=== PATIENT | female | born 1955 | race Caucasian/White ===

== ENCOUNTER → 2018-02-02 | Outpatient (CLI) | payer OTHER ==
[~2018-02-02] MED LIST: ACET-1966 PO; ASPI81TA94 PO; ATOR40TA24 PO; CALC500T42 PO; CALC600T63 PO; CELE-1 PO; CHOL10005 PO; DESO1TAB33 PO; DOC100 PO; ESOM20CA31 PO; FERR240T23 PO; FERROUS PO; FEXO-67 PO; FISH OIL1 CAP PO; FISH1CAP15 PO; FLU10 PO; FLUC150T40 PO; FLUO40CA70 PO; FLUT16SP19 NS; FLUT16SP20 NS; FURO-47 PO; GLUC-100 PO; GLUC1TAB13 PO; HYDR-4309 PO; LACT1CAP9 PO; LOR10 PO; MAGN250T25 PO; MAGN300C3 PO; METF-410 PO; METO25TA23 PO; MULT-820 PO; MULT1TAB64 PO; OLAN5TAB27 PO; OMEG-70 PO; OSC600 PO; OXYC-865 PO; PAN40 PO; PARO-243 PO; PER PO; PRAM0.2524 PO; ROS10 PO; TRA50 PO; ZYRTEC PO; [UNRECOGNIZED DRUG - CODE] PO; [UNRECOGNIZED DRUG - CODE] PV
--- NOTE | 2018-02-03 10:29 | RADIOLOGY IMAGING REPORT ---
FACILITY: [facility] - [place] PATIENT NAME: ADRIA ARMSTRONG : [id number] MR: [id number] V: [id number] EXAM DATE: ORDERING PHYSICIAN: STUART XIAO TECHNOLOGIST: Tere Fink PROCEDURE:US LEFT BREAST COMPARISON:Prior Left breast Ultrasound 07/12/17 INDICATIONS:6 mo f/u FINDINGS: In the 9 o'clock position of the Left breast approximately 3cm from the nipple are 2 well circumscribed hypoechoic nodules 1 measuring 4 x 4 x 2.4mm and 1 measuring 2.5 x 2 x 2.9mm a minimally increase in size. In the 10 o'clock position of the Left breast there is a 4.8 x 5.1 x 3mm well circumscribed hypoechoic nodule 5cm from the nipple. Also in the 10 o'clock position of the Left breast 7cm from the nipple is a 3.1 x 3.8 x 2.1mm well circumscribed hypoechoic nodule relatively unchanged. DIAGNOSTIC CATEGORY 3--PROBABLY BENIGN FINDING. RECOMMENDATIONS: SIX MONTH FOLLOW-UP ULTRASOUND: LEFT BREAST. IMPRESSION: BIRADS 3: Probably benign finding Well circumscribed hypoechoic nodules in the 9 & 10 o'clock position Left breast are not significantly changed when compared to the prior study. 6 month follow-up Left breast Ultrasound recommended to document stability over a 2 year period. Of note the patient will be due for an annual mammogram at that time. Dictated by: Melvi Bender M.D. on 02/02/2018 at 16:29 Transcribed by: NED on 02/03/2018 at 10:26 Approved by: Melvi Bender M.D. on 02/03/2018 at 10:28 [facility]
== END ==
LOC: US 01:08
PROVIDERS: ATTEND Nurse Practitioner Family
DX: N63.22 Unspecified lump in the left breast, upper inner quadrant (principal)

== ENCOUNTER → 2018-02-03 | Outpatient (CLI) | payer OTHER ==
--- NOTE | 2018-02-03 13:24 | RADIOLOGY IMAGING REPORT ---
FACILITY: [facility] - [place] PATIENT NAME: Jenny Wilson : 1955 MR: [id number] V: [id number] EXAM DATE: ORDERING PHYSICIAN: STUART XIAO TECHNOLOGIST: Location: [facility] - [place] Patient: Jenny Wilson : 1955 Visit/Account:[id number] Date of Sevice: 02/03/2018 Exam type: HAND COMPLETE RIGHT History: Right second digit bump on DIP Comparison: None. Findings: There are severe degenerative changes involving the DIP joint of the right second finger. There are severe joint space narrowing and prominent marginal osteophytes. Similar changes however to lesser e xtent are identified at the remaining DIP joints. Moderate degenerative changes also noted involving the first carpometacarpal articulation IMPRESSION: 1. 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
== END ==
LOC: RAD 11:58
PROVIDERS: ATTEND Nurse Practitioner Family
DX: M19.041 Primary osteoarthritis, right hand (principal)

== ENCOUNTER → 2018-07-13 | Outpatient (CLI) | payer OTHER ==
[~2018-07-13] MED LIST changes: -METF-410 PO; +METF-450 PO
--- NOTE | 2018-07-14 10:44 | RADIOLOGY IMAGING REPORT ---
FACILITY: [facility] - [place] PATIENT NAME: ADRIA ARMSTRONG : [id number] MR: [id number] V: [id number] EXAM DATE: [id number] ORDERING PHYSICIAN: JAKE HERRERA TECHNOLOGIST: Kell Acosta RT(R)(CT) PROCEDURE:US LEFT BREAST COMPARISON:Prior Left breast Ultrasound 02/02/18. INDICATIONS:6 MO F/U FINDINGS: In the 9 o'clock position of the Left breast 3cm from the nipple there is a well circumscribed hypoechoic nodule measuring 3.7mm in maximum dimension. Also in the 9 o'clock position of the Left breast 3cm from the nipple is a well circumscribed hypoechoic nodule measuring 2.5mm in maximum dimension. These have remained relatively stable. In the 10 o'clock position of the Left breast 7cm from the nipple is a well circumscribed hypoechoic nodule measuring 3.4mm in maximum dimension and in the 10 o'clock position of the Left breast 5cm from the nipple is a well circumscribed hypoechoic nodule measuring 5.2mm in diameter. All the nodules have remained stable. DIAGNOSTIC CATEGORY 3--PROBABLY BENIGN FINDING. RECOMMENDATIONS: SIX MONTH FOLLOW-UP ULTRASOUND: LEFT BREAST. IMPRESSION: BIRADS 3: Probably benign finding. A 6 month follow-up Left breast Ultrasound is recommended to document stability of the hypoechoic nodules in the Left breast over a 2 year period. Dictated by: Melvi Bender M.D. on 07/13/2018 at 17:09 Transcribed by: NED on 07/14/2018 at 8:10 Approved by: Melvi Bender M.D. on 07/14/2018 at 10:43 [facility]
--- NOTE | 2018-07-14 10:44 | RADIOLOGY IMAGING REPORT ---
FACILITY: [facility] - [place] PATIENT NAME: ADRIA ARMSTRONG : [id number] MR: [id number] V: [id number] EXAM DATE: [id number] ORDERING PHYSICIAN: JAKE HERRERA TECHNOLOGIST: Corinna Alcala PROCEDURE:BILATERAL DIGITAL SCREENING MAMMOGRAM WITH CAD ASSISTED INTERPRETATION & 3D TOMOSYNTHESIS COMPARISON:Prior mammograms 07/12/17, 12/22/13, 01/29/12. INDICATIONS:SCREENING FINDINGS: A small amount of fibroglandular tissue is seen throughout the breasts. The parenchymal pattern has remained stable allowing for difference in mammographic technique & patient positioning. There is no evidence of malignant appearing mass, malignant appearing calcifications or other secondary sign of malignancy in either breast. DIAGNOSTIC CATEGORY 3--PROBABLY BENIGN FINDING. RECOMMENDATIONS: SIX MONTH FOLLOW-UP ULTRASOUND: LEFT BREAST. IMPRESSION: BIRADS 3: Probably benign finding. Mammograms remain radio graphically stable. A 6 month follow-up Left breast Ultrasound is recommended as described in Today's Left breast Ultrasound report. Dictated by: Melvi Bender M.D. on 07/13/2018 at 17:05 Transcribed by: NED on 07/14/2018 at 8:02 Approved by: Melvi Bender M.D. on 07/14/2018 at 10:43 [facility]
== END ==
LOC: MAMO 06:48
PROVIDERS: ATTEND Nurse Practitioner Family
DX: Z12.31 Encounter for screening mammogram for malignant neoplasm of breast (principal); N63.22 Unspecified lump in the left breast, upper inner quadrant
CPT/HCPCS: 77063; 77067

== ENCOUNTER → 2018-11-14 | Outpatient (CLI) | payer OTHER ==
[~2018-11-14] MED LIST changes: -HYDR-4309 PO; +HYDR-653 PO
--- NOTE | 2018-11-14 17:31 | EKG ---
FACILITY: [facility] - [place] PATIENT NAME: ADRIA ARMSTRONG : [id number] MR: [id number] V: [id number] EXAM DATE: ORDERING PHYSICIAN: JAKE HERRERA TECHNOLOGIST: BIB Willis Reason : SOB \ PALPITATIONS Blood Pressure : / mmHG Vent. Rate : 067 BPM Atrial Rate : 067 BPM P-R Int : 176 ms QRS Dur : 084 ms QT Int : 420 ms P-R-T Axes : 057 090 067 degrees QTc Int : 443 ms Normal sinus rhythm Rightward axis Borderline ECG No previous ECGs available Confirmed by HAI DORSEY ([id number]) on 11/14/2018 10:10:56 PM Referred By: SHARON Confirmed By:HAI DORSEY
--- NOTE | 2018-11-14 23:54 | RADIOLOGY IMAGING REPORT ---
FACILITY: [facility] - [place] PATIENT NAME: Jenny Wilson : 1955 MR: [id number] V: [id number] EXAM DATE: ORDERING PHYSICIAN: JAKE HERRERA TECHNOLOGIST: Location: [facility] - [place] Patient: Jenny Wilson : 1955 Visit/Account:[id number] Date of Sevice: 11/14/2018 TWO VIEW CHEST 11/14/2018 5:03 PM. INDICATION: Shortness of breath, palpitations, chest pain, dizziness. COMPARISON: 06/17/2009. FINDINGS: Lungs remain mildly hyperexpanded. The lungs are clear. No pneumothorax or pleural effusi on. Pulmonary vasculature is unremarkable. Heart size is normal. IMPRESSION: Mild hyperexpansion similar to 2009. No apparent acute abnormality. Report Dictated By: Kevin Antunez MD at 11/14/2018 11:48 PM Report E-Signed By: Kevin Antunez MD at 11/14/2018 11:50 PM WSN:[id number]
== END ==
LOC: LAB 16:46
PROVIDERS: ATTEND Nurse Practitioner Family
DX: R06.00 Dyspnea, unspecified (principal); R00.2 Palpitations; R42 Dizziness and giddiness
CPT/HCPCS: 36415; 71046; 82040; 82247; 82310; 82374; 82435; 82565; 82947; 84075; 84132; 84155; 84295; 84450; 84460; 84520; 85027; 93005

== ENCOUNTER → 2018-11-25 | Outpatient (CLI) | payer OTHER ==
--- NOTE | 2018-11-25 10:12 | RADIOLOGY IMAGING REPORT ---
FACILITY: [facility] - [place], [place] PATIENT NAME: Jenny Wilson : 1955 MR: [id number] V: [id number] EXAM DATE: ORDERING PHYSICIAN: STUART XIAO TECHNOLOGIST: Location: [facility] - [place] Patient: Jenny Wilson : 1955 Visit/Account:[id number] Date of Sevice: 11/25/2018 GALLBLADDER HISTORY: Right upper quadrant pain, nausea on and off COMPARISON: CT abdomen pelvis January 19, 2017 FINDINGS: Gallbladder: Unremarkable; no stones or sludge. Liver: There is a slightly coarse echotexture to the liver although discrete mass is not seen. Common duct: Normal, 2.3 mm diameter. Pancreas: Partially obscured by bowel, visualized aspects unremarkable. Right kidney: Appears unremarkable measuring 12.6 cm in length Upper abdominal aorta and IVC: Patent. Ascites: None visualized. IMPRESSION: There is a slightly coarse echotexture to the liver although discrete mass is not seen. This may be related to fatty infiltration other infiltrative process Report Dictated By: Melvi Bender MD at 11/25/2018 10:05 AM Report E-Signed By: Melvi Bender MD at 11/25/2018 10:08 AM WSN:[email or web address]
== END ==
LOC: US 07:01
PROVIDERS: ATTEND Nurse Practitioner Family
DX: R10.11 Right upper quadrant pain (principal); R10.31 Right lower quadrant pain
CPT/HCPCS: 76705

== ENCOUNTER 2018-12-01 17:07 | Emergency (ER) | payer OTHER ==
[2018-12-01] MEDS ORDERED: NS(*) 0.9% 1000 ML BAG 1,000 ML IV ONE (17:42)
--- NOTE | 2018-12-01 17:44 | ER Report ---
History and Physical Time Seen By MD: 17:23 HPI/ROS CHIEF COMPLAINT: Shortness of breath, difficulty swallowing HISTORY OF PRESENT ILLNESS: 63-year-old female patient presents to emergency room with complaint of shortness of breath and difficulty swallowing. Patient states that she has had this going on for the past 2 months. She states she is seeing her primary care provider for this, she's had an EKG, chest x-ray, blood work done which were all unremarkable. Patient states that she often feels like she is trying to breathe through a straw. She denies having any fevers, chills, nausea, vomiting or diarrhea. Patient states that she does have difficulty swallowing at times. She states sometimes are better than others but states that this is been significantly worse over the last 2 days. Patient has been started on a PPI as well as Carafate for possible reflux and esophagitis. REVIEW OF SYSTEMS: Respiratory: As noted above. Cardiovascular: No chest pain, no palpitations. Gastrointestinal: No vomiting, no abdominal pain. Musculoskeletal: No back pain. Allergies: Coded Allergies: guaifenesin (Verified Allergy, Mild, 12/01/18) phenylpropanolamine (Verified Allergy, Mild, 12/01/18) Home Meds Active Scripts Prednisone (PREDNISONE) 20 Mg Tablet, 40 MG PO DAILY, #8 TAB Prov:EVANGELINA WHITFIELD 12/01/18 Hydrocodone Bit/Acetaminophen (NORCO 5-325 TABLET) 1 Each Tablet, 1 EACH PO Q4H PRN for PAIN, #30 TAB Prov:ROBYN BALLARD MD 08/10/17 Reported Medications Fexofenadine Hcl (DAMIAN ALLERGY) 180 Mg Tablet, 180 MG PO QDAY 08/06/17 Cholecalciferol (Vitamin D3) (VITAMIN D3) 1,000 Unit Tablet, 3000 UNIT PO DAILY, TAB 08/06/17 Paroxetine Hcl (PAXIL) 20 Mg Tablet, 40 MG PO QDAY, TAB 08/06/17 Furosemide (FUROSEMIDE) 40 Mg Tablet, 1 TAB PO DAILY, TAB 08/06/17 [Chlorcon] No Conflict Check, 10 MEQ PO DAILY 08/06/17 Olanzapine (OLANZAPINE) 5 Mg Tablet, 5 MG PO QDAY 08/06/17 Acetaminophen (TYLENOL) 325 Mg Tablet, 1000 MG PO PRN PRN for PAIN, TAB 08/06/17 Multivitamin (MULTI VITAMIN DAILY) 1 Each Tablet, 1 EACH PO DAILY 08/06/17 Calcium Carbonate (CALCIUM) 600 Mg Tablet, 1 TAB PO DAILY 08/06/17 Fish Oil/Dha/Epa (FISH OIL 1,200 MG FISH OIL) 1 Each Capsule, 2 EACH PO DAILY, CAPSULE 08/06/17 Rosuvastatin Calcium (CRESTOR) 10 Mg Tab, 10 MG PO QDAY, #5 TAB 08/06/17 Metoprolol Succinate (METOPROLOL SUCCINATE) 25 Mg Tab.er.24h, 0.5 TAB PO QDAY, TAB 08/06/17 Glucosamine Hcl/Chondr Quinones A Na (OSTEO BI-FLEX CAPLET) 1 Each Tablet, 1 EACH PO 11/30/13 Metformin Hcl (METFORMIN HCL) 500 Mg Tablet, 1 TAB PO QDAY TAKE ONE TABLET BY MOUTH ONCE A DAY WITH FOOD 11/30/13 Pramipexole Di-Hcl (Mirapex) 0.25 Mg Tablet, 0.25 MG PO, 0 Refills 06/14/09 Fluticasone Propionate (Fluticasone Propionate) 16 Gm Singer, 16 GM NS DAILY, 0 Refills 06/14/09 Celecoxib (Celebrex) 200 Mg Capsule, 200 MG PO DAILY, 0 Refills 06/14/09 Discontinued Reported Medications Aspirin (ASPIRIN) 81 Mg Tab.chew, 81 MG PO QDAY, TAB.CHEW 08/06/17 Pantoprazole Sod (Protonix) 40 Mg Tabec, 40 MG PO QDAY, 0 Refills 06/14/09 Past Medical/Surgical History Patient has a past medical history of heart murmur, hypertension, hyperlipidemia, pulmonary hypertension, hemorrhoids, reflux, colonoscopy, hematuria, TMJ, arthritis, arm fracture, broken thumb, nvu-[id number]-mzpuhawle diabetes, alcohol use, depression, anxiety. Patient has surgical history of colonoscopy 2, tubal ligation, right knee repair, tonsillectomy. Patient has a family medical history of cancer, CAD, stroke. Reviewed Nurses Notes: Yes Hx Smoking: No Smoking Status: Never Smoker Hx Alcohol Use: Yes Constitutional Vital Sign - Last 24 Hours 12/01/18 12/01/18 12/01/18 12/01/18 17:19 17:22 17:25 17:30 Temp 97.8 Pulse 75 73 Resp 15 16 B/P (MAP) 110/88 (95) 110/68 118/76 (90) Pulse Ox 94 95 O2 Delivery Room Air 12/01/18 12/01/18 12/01/18 12/01/18 17:37 17:52 18:00 18:07 Pulse 70 69 69 Resp 18 23 15 B/P (MAP) 119/84 (96) Pulse Ox 97 95 98 12/01/18 12/01/18 12/01/18 12/01/18 18:37 19:00 19:05 19:30 Pulse 97 67 B/P (MAP) 140/79 (99) 118/72 (87) Pulse Ox 93 96 12/01/18 12/01/18 12/01/18 12/01/18 19:35 19:40 19:45 19:55 Pulse 56 58 63 Pulse Ox 93 95 98 O2 Flow Rate 2.0 12/01/18 12/01/18 12/01/18 12/01/18 20:00 20:25 20:30 20:45 Pulse 64 74 78 B/P (MAP) 122/73 (89) 107/64 (78) Pulse Ox 96 94 96 Physical Exam General Appearance: The patient is alert, has no immediate need for airway protection and no current signs of toxicity. Respiratory: Chest is non tender, lungs are clear to auscultation. Cardiac: regular rate and rhythm Gastrointestinal: Abdomen is soft and non tender, no masses, bowel sounds normal. Musculoskeletal: Neck: Neck is supple and non tender. Extremities have full range of motion and are non tender. Skin: No rashes or lesions. DIFFERENTIAL DIAGNOSIS: After history and physical exam differential diagnosis was considered for reflux, gastritis, supratentorial. Medical Decision Making Data Points Result Diagram: 12/01/18181012/01/18 181 Laboratory Hematology Test 12/01/18 18:11 12/01/18 18:40 Red Blood Count 4.84 M/uL (4.17-5.56) Mean Corpuscular Volume 89.4 fL (80.0-96.0) Mean Corpuscular Hemoglobin 29.8 pg (26.0-33.0) Mean Corpuscular Hemoglobin Concent 33.4 g/dL (32.0-36.0) Red Cell Distribution Width 14.0 % (11.5-14.5) Mean Platelet Volume 8.6 fL (7.2-11.1) Neutrophils (%) (Auto) 54.0 % (39.4-72.5) Lymphocytes (%) (Auto) 33.3 % (17.6-49.6) Monocytes (%) (Auto) 9.6 % (4.1-12.4) Eosinophils (%) (Auto) 1.4 % (0.4-6.7) Basophils (%) (Auto) 1.7 % (0.3-1.4) Nucleated RBC Relative Count (auto) 0.1 /100WBC Neutrophils # (Auto) 5.1 K/uL (2.0-7.4) Lymphocytes # (Auto) 3.2 K/uL (1.3-3.6) Monocytes # (Auto) 0.9 K/uL (0.3-1.0) Eosinophils # (Auto) 0.1 K/uL (0.0-0.5) Basophils # (Auto) 0.2 K/uL (0.0-0.1) Nucleated RBC Absolute Count (auto) 0.01 K/uL D-Dimer Quantitative (PE/DVT) 0.57 ug/ml (0-0.50) Sodium Level 141 mmol/L (137-145) Potassium Level 3.9 mmol/L (3.5-5.0) Chloride Level 103 mmol/L (98-107) Carbon Dioxide Level 26 mmol/L (22-31) Blood Urea Nitrogen 23 mg/dl (7-18) Creatinine 0.90 mg/dl (0.52-1.04) Glomerular Filtration Rate Calc > 60.0 Random Glucose 93 mg/dl (75-110) Calcium Level 9.8 mg/dl (8.4-10.2) Total Bilirubin 0.4 mg/dl (0.2-1.3) Aspartate Amino Transf (AST/SGOT) 43 U/L (0-35) Alanine Aminotransferase (ALT/SGPT) 52 U/L (0-56) Alkaline Phosphatase 93 U/L (0-126) Troponin I < 0.012 ng/ml B-Type Natriuretic Peptide 63 pg/ml (0-100) Total Protein 7.9 g/dl (6.3-8.2) Albumin 4.6 g/dl (3.5-5.0) Urine Color Pam Urine Clarity Cloudy Urine pH 7.0 pH (4.8-9.5) Urine Specific Alexander 1.012 Urine Protein Negative mg/dL (NEGATIVE) Urine Glucose (UA) Negative mg/dL (NEGATIVE) Urine Ketones Negative mg/dL (NEGATIVE) Urine Blood Negative (NEGATIVE) Urine Nitrite Negative (NEGATIVE) Urine Bilirubin Negative (NEGATIVE) Urine Urobilinogen Negative mg/dL (0.2-1.9) Urine Leukocyte Esterase Small (NEGATIVE) Urine RBC <1 /HPF (0-2/HPF) Urine WBC 4 /HPF (0-5/HPF) Urine Squamous Epithelial Cells Few /LPF (</=FEW) Urine Bacteria Few /HPF (NONE-FEW) Urine Mucus None /HPF (NONE-FEW) Chemistry Test 12/01/18 18:11 12/01/18 18:40 White Blood Count 9.5 k/uL (4.5-11.0) Red Blood Count 4.84 M/uL (4.17-5.56) Hemoglobin 14.4 g/dL (12.0-16.0) Hematocrit 43.3 % (34.0-47.0) Mean Corpuscular Volume 89.4 fL (80.0-96.0) Mean Corpuscular Hemoglobin 29.8 pg (26.0-33.0) Mean Corpuscular Hemoglobin Concent 33.4 g/dL (32.0-36.0) Red Cell Distribution Width 14.0 % (11.5-14.5) Platelet Count 300 K/uL (150-450) Mean Platelet Volume 8.6 fL (7.2-11.1) Neutrophils (%) (Auto) 54.0 % (39.4-72.5) Lymphocytes (%) (Auto) 33.3 % (17.6-49.6) Monocytes (%) (Auto) 9.6 % (4.1-12.4) Eosinophils (%) (Auto) 1.4 % (0.4-6.7) Basophils (%) (Auto) 1.7 % (0.3-1.4) Nucleated RBC Relative Count (auto) 0.1 /100WBC Neutrophils # (Auto) 5.1 K/uL (2.0-7.4) Lymphocytes # (Auto) 3.2 K/uL (1.3-3.6) Monocytes # (Auto) 0.9 K/uL (0.3-1.0) Eosinophils # (Auto) 0.1 K/uL (0.0-0.5) Basophils # (Auto) 0.2 K/uL (0.0-0.1) Nucleated RBC Absolute Count (auto) 0.01 K/uL D-Dimer Quantitative (PE/DVT) 0.57 ug/ml (0-0.50) Glomerular Filtration Rate Calc > 60.0 Calcium Level 9.8 mg/dl (8.4-10.2) Total Bilirubin 0.4 mg/dl (0.2-1.3) Aspartate Amino Transf (AST/SGOT) 43 U/L (0-35) Alanine Aminotransferase (ALT/SGPT) 52 U/L (0-56) Alkaline Phosphatase 93 U/L (0-126) Troponin I < 0.012 ng/ml B-Type Natriuretic Peptide 63 pg/ml (0-100) Total Protein 7.9 g/dl (6.3-8.2) Albumin 4.6 g/dl (3.5-5.0) Urine Color Pam Urine Clarity Cloudy Urine pH 7.0 pH (4.8-9.5) Urine Specific Alexander 1.012 Urine Protein Negative mg/dL (NEGATIVE) Urine Glucose (UA) Negative mg/dL (NEGATIVE) Urine Ketones Negative mg/dL (NEGATIVE) Urine Blood Negative (NEGATIVE) Urine Nitrite Negative (NEGATIVE) Urine Bilirubin Negative (NEGATIVE) Urine Urobilinogen Negative mg/dL (0.2-1.9) Urine Leukocyte Esterase Small (NEGATIVE) Urine RBC <1 /HPF (0-2/HPF) Urine WBC 4 /HPF (0-5/HPF) Urine Squamous Epithelial Cells Few /LPF (</=FEW) Urine Bacteria Few /HPF (NONE-FEW) Urine Mucus None /HPF (NONE-FEW) Coagulation Test 12/01/18 18:11 D-Dimer Quantitative (PE/DVT) 0.57 ug/ml Urinalysis Test 12/01/18 18:40 Urine Color Pam Urine Clarity Cloudy Urine pH 7.0 pH (4.8-9.5) Urine Specific Alexander 1.012 Urine Protein Negative mg/dL (NEGATIVE) Urine Glucose (UA) Negative mg/dL (NEGATIVE) Urine Ketones Negative mg/dL (NEGATIVE) Urine Blood Negative (NEGATIVE) Urine Nitrite Negative (NEGATIVE) Urine Bilirubin Negative (NEGATIVE) Urine Urobilinogen Negative mg/dL (0.2-1.9) Urine Leukocyte Esterase Small (NEGATIVE) Urine RBC <1 /HPF (0-2/HPF) Urine WBC 4 /HPF (0-5/HPF) Urine Squamous Epithelial Cells Few /LPF (</=FEW) Urine Bacteria Few /HPF (NONE-FEW) Urine Mucus None /HPF (NONE-FEW) EKG/Imaging Imaging CT angiogram chest with contrast Indication: Shortness breath and elevated d-dimer. Comparison: None available. Technique: Axial CT images are obtained through the chest after administration of 75 mL Isovue 370 IV contrast. Reformatted coronal and sagittal images were reviewed as well as coronal MIP images. One of the following dose optimization techniques was utilized in the performance of this exam: automated exposure control; adjustment of the mA and/or kV according to the patient's size; or use of an iterative reconstruction technique. Specific details can be referenced in the facility's radiology CT exam operational policy. FINDINGS: No evidence of filling defect within the pulmonary vasculature to suggest pulmonary embolus. Heart is upper limits normal for size without pericardial effusion. The aorta shows mild atherosclerotic calcific changes without aneurysm or dissection. The mediastinum and hilar regions show abnormal density. There is a prominent left prevascular lymph node measuring 1.8 x 1.6 cm. There are couple small lymph nodes seen mediastinum and hilar regions. Lungs show mild dependent atelectasis. Mild scarring seen left lower lobe. No consolidations, pleural effusion or pneumothorax. No discrete nodule or focal interstitial opacities. Airways are clear. Bony structures show no acute fractures. No aggressive bony lesions. Degenerative changes spine with couple prominent Schmorl's nodes. Chest wall shows no enlarged axillary lymph nodes or masses. Small hiatal hernia. Upper abdomen is otherwise unremarkable. IMPRESSION: 1. No evidence of pulmonary embolus. 2. No acute cardiothoracic abnormality 3. Prominent prevascular lymph node mediastinum is nonspecific at this time. Report Dictated By: Jayy Oscar at 12/01/2018 7:56 PM Report E-Signed By: Jayy Oscar at 12/01/2018 8:04 PM EXAMINATION: CT neck with IV contrast HISTORY: Shortness of breath. Elevated d-dimer. COMPARISON: None. TECHNIQUE: Spiral scan was obtained from the hard palate through the upper chest during injection of nonionic iodinated intravenous contrast. Sagittal and coronal reformatted images are also submitted. CONTRAST: 75 mL of IV Isovue-370 One of the following dose optimization techniques was utilized in the performance of this exam: Automated exposure control; adjustment of the mA and/or kV according to the patient's size; or use of an iterative reconstruction technique. Specific details can be referenced in the facility's radiology CT exam operational policy. FINDINGS: Masses/lesions: No evidence of mass, abscess, or significant soft tissue swelling in the neck. Airway: Relatively prominent lingual tonsils which narrow the oropharyngeal airway. Vessels: Mild calcified plaque at the aortic arch. Calcification of the carotid siphons. Musculoskeletal / Body wall: Advanced multilevel disc degenerative changes in the cervical spine. Lymph node assessment: No lymphadenopathy by size criteria. Visualized orbits / brain / paranasal sinuses: Mild mucosal thickening in the left maxillary sinus and within the ethmoid air cells. Upper chest: Negative. IMPRESSION: No evidence of mass, abscess, or significant soft tissue swelling in the neck. Relatively prominent lingual tonsils which narrows the oropharyngeal airway. Report Dictated By: Mark Padgett MD at 12/01/2018 7:55 PM Report E-Signed By: Mark Padgett MD at 12/01/2018 8:04 PM 2 VIEWS CHEST INDICATION: Respiratory distress. Trouble swallowing. COMPARISON: 11/14/2018. FINDINGS: Cardiomediastinal silhouette and pulmonary vessels within normal limits. There is no focal infiltrate or lobar consolidation. There is no pneumothorax or pleural effusion. Tiny nodule seen in the lateral right upper lobe which is not appreciated previously however could be a prominent vessel. No other nodules. Upper abdomen is unremarkable. No acute bony abnormality. IMPRESSION: 1. No acute cardiopulmonary process. 2. Tiny nodular opacity seen in the lateral right upper lobe. This could represent a prominent vessel. However suggest a follow-up 6 month chest x-ray for reevaluation. Report Dictated By: Jayy Oscar at 12/01/2018 6:44 PM Report E-Signed By: Jayy Oscar at 12/01/2018 6:49 PM ED Course/Re-evaluation ED Course Patient was admitted to an exam room, history and physical were obtained. Differential diagnoses were considered. On examination lungs are clear, heart is regular, abdomen soft nontender. An IV was started, patient received a liter of normal saline. A CBC, CMP, chest x-ray were done. A d-dimer, troponin, EKG were also done. EKG was normal, troponin was negative, d-dimer was elevated at 0.57. A CT pulmonary angiogram was done and the same time a CT scan of the soft tissue neck were done. The CT scan of the lungs showed no pulmonary emboli. CT scan of the neck did show large lingual tonsils. It was noted that was narrowing her airway considerably. I discussed the findings with the patient. As a result I will patient does need to follow-up with Dr. Villegas to discuss tonsillectomy. We will go ahead and do a burst of steroids in the goal to decrease inflammation in the tonsils and hopefully make her airway bigger. Patient was surprised with diagnosis, stating that she had her tonsils taken out. I believe that she may have had her tonsils removed, but I don't believe that that included the lingual tonsils. I did review the images with patient, showing her where those tonsils were. She is to follow-up with Dr. Villegas, calling tomorrow to make an appointment. Patient verbalized understanding and agreement with plan. Decision to Disposition Date: Dec 01, 2018 Decision to Disposition Time: 20:51 Depart Departure Latest Vital Signs Vital Signs Date Time Temp Pulse Resp B/P (MAP) Pulse Ox O2 Delivery O2 Flow Rate FiO2 12/01/18 20:45 78 96 12/01/18 20:30 107/64 (78) 12/01/18 19:45 2.0 12/01/18 18:07 15 12/01/18 17:25 97.8 Room Air Impression: Primary Impression: Lingual tonsil hypertrophy Condition: Improved Disposition: HOME OR SELF-CARE Referrals: STUART XIAO (PCP) SALVATORE VILLEGAS JR, MD New Scripts Prednisone (PREDNISONE) 20 Mg Tablet 40 MG PO DAILY, #8 TAB Prov: EVANGELINA WHITFIELD 12/01/18 Patient Instructions: GENERAL ER DISCHARGE INSTRUCTIONS Additional Instructions: Increase fluid intake. Get plenty of rest. Take small bites to help food pass by the tonsils. Follow up with Dr. Villegas, Call tomorrow to make an appointment. Return to the ER if condition worsens. EVANGELINA WHITFIELD Dec 01, 2018 17:44
--- NOTE | 2018-12-01 18:24 | EKG ---
FACILITY: [facility] - [place], [place] PATIENT NAME: ADRIA ARMSTRONG : [id number] MR: [id number] V: [id number] EXAM DATE: ORDERING PHYSICIAN: EVANGELINA WHITFIELD TECHNOLOGIST: Test Reason : SOB Blood Pressure : / mmHG Vent. Rate : 063 BPM Atrial Rate : 063 BPM P-R Int : 190 ms QRS Dur : 078 ms QT Int : 424 ms P-R-T Axes : 070 060 061 degrees QTc Int : 433 ms Normal sinus rhythm Normal ECG Confirmed by HAI DORSEY ([id number]) on 12/02/2018 6:35:06 AM Referred By: Confirmed By:HAI DORSEY
[2018-12-01 18:30] LABS: PLATELET COUNT, AUTOMATED 300 K/uL (150-450)
[2018-12-01] MEDS ORDERED: NS(*) 0.9% 50 ML BAG 50 ML ONE (18:52)
[2018-12-01] MEDS ORDERED: IOPAMIDOL 76% 100 ML INFUS BTL 100 ML ONE (18:52)
--- NOTE | 2018-12-01 18:54 | RADIOLOGY IMAGING REPORT ---
FACILITY: [facility] PATIENT NAME: Jenny Wilson : 1955 MR: [id number] V: [id number] EXAM DATE: ORDERING PHYSICIAN: EVANGELINA WHITFIELD TECHNOLOGIST: Location: [facility] Patient: Jenny Wilson : 1955 Visit/Account:[id number] Date of Sevice: 12/01/2018 2 VIEWS CHEST INDICATION: Respiratory distress. Trouble swallowing. COMPARISON: 11/14/2018. FINDINGS: Cardiomediastinal silhouette and pulmonary vessels within normal limits. There is no focal infiltrate or lobar consolidation. There is no pneumothorax or pleural effusion. Tiny nodule seen in the lateral right upper lobe which is not appreciated previously however could be a prominent vessel. No other nodules. Upper abdomen is unremarkable. No acute bony abnormality. IMPRESSION: 1. No acute cardiopulmonary process. 2. Tiny nodular opacity seen in the lateral right upper lobe. This could represent a prominent vessel . However suggest a follow-up 6 month chest x-ray for reevaluation. Report Dictated By: Jayy Oscar at 12/01/2018 6:44 PM Report E-Signed By: Jayy Oscar at 12/01/2018 6:49 PM WSN:[id number]
--- NOTE | 2018-12-01 20:09 | RADIOLOGY IMAGING REPORT ---
FACILITY: [facility] PATIENT NAME: Jenny Wilson : 1955 MR: [id number] V: [id number] EXAM DATE: ORDERING PHYSICIAN: EVANGELINA WHITFIELD TECHNOLOGIST: Location: [facility] Patient: Jenny Wilson : 1955 Visit/Account:[id number] Date of Sevice: 12/01/2018 EXAMINATION: CT neck with IV contrast HISTORY: Shortness of breath. Elevated d-dimer. COMPARISON: None. TECHNIQUE: Spiral scan was obtained from the hard palate through the upper chest during injection o f nonionic iodinated intravenous contrast. Sagittal and coronal reformatted images are also submitte d. CONTRAST: 75 mL of IV Isovue-370 One of the following dose optimization techniques was utilized in the performance of this exam: Autom ated exposure control; adjustment of the mA and/or kV according to the patient's size; or use of an i terative reconstruction technique. Specific details can be referenced in the facility's radiology C T exam operational policy. FINDINGS: Masses/lesions: No evidence of mass, abscess, or significant soft tissue swelling in the neck. Airway: Relatively prominent lingual tonsils which narrow the oropharyngeal airway. Vessels: Mild calcified plaque at the aortic arch. Calcification of the carotid siphons. Musculoskeletal / Body wall: Advanced multilevel disc degenerative changes in the cervical spine. Lymph node assessment: No lymphadenopathy by size criteria. Visualized orbits / brain / paranasal sinuses: Mild mucosal thickening in the left maxillary sinus an d within the ethmoid air cells. Upper chest: Negative. IMPRESSION: No evidence of mass, abscess, or significant soft tissue swelling in the neck. Relatively prominent lingual tonsils which narrows the oropharyngeal airway. Report Dictated By: Mark Padgett MD at 12/01/2018 7:55 PM Report E-Signed By: Mark Padgett MD at 12/01/2018 8:04 PM WSN:[id number]
--- NOTE | 2018-12-01 20:09 | RADIOLOGY IMAGING REPORT ---
FACILITY: [facility] PATIENT NAME: Jenny Wilson : 1955 MR: [id number] V: [id number] EXAM DATE: ORDERING PHYSICIAN: EVANGELINA WHITFIELD TECHNOLOGIST: Location: [facility] [place] Patient: Jenny Wilson : 1955 Visit/Account:[id number] Date of Sevice: 12/01/2018 CT angiogram chest with contrast Indication: Shortness breath and elevated d-dimer. Comparison: None available. Technique: Axial CT images are obtained through the chest after administration of 75 mL Isovue 370 IV contrast. Reformatted coronal and sagittal images were reviewed as well as coronal MIP images. One of the following dose optimization techniques was utilized in the performance of this exam: auto mated exposure control; adjustment of the mA and/or kV according to the patient's size; or use of an iterative reconstruction technique. Specific details can be referenced in the facility's radiology C T exam operational policy. FINDINGS: No evidence of filling defect within the pulmonary vasculature to suggest pulmonary embolus. Heart is upper limits normal for size without pericardial effusion. The aorta shows mild atherosclero tic calcific changes without aneurysm or dissection. The mediastinum and hilar regions show abnormal density. There is a prominent left prevascular lymph node measuring 1.8 x 1.6 cm. There are couple sm all lymph nodes seen mediastinum and hilar regions. Lungs show mild dependent atelectasis. Mild scarring seen left lower lobe. No consolidations, pleural effusion or pneumothorax. No discrete nodule or focal interstitial opacities. Airways are clear. Bony structures show no acute fractures. No aggressive bony lesions. Degenerative changes spine with couple prominent Schmorl's nodes. Chest wall shows no enlarged axillary lymph nodes or masses. Small hiatal hernia. Upper abdomen is otherwise unremarkable. IMPRESSION: 1. No evidence of pulmonary embolus. 2. No acute cardiothoracic abnormality 3. Prominent prevascular lymph node mediastinum is nonspecific at this time. Report Dictated By: Jayy Oscar at 12/01/2018 7:56 PM Report E-Signed By: Jayy Oscar at 12/01/2018 8:04 PM WSN:[id number]
[2018-12-01 20:30] VITALS: BP 107/64
[2018-12-01] MEDS ORDERED: PRED20TA6 PO ×2 (20:49→21:04)
[2018-12-01] MEDS ORDERED: predniSONE 20 MG TAB PO ONE (20:50)
[2018-12-06] MEDS ORDERED: AMOX-559 PO (08:51)
[2018-12-06] MEDS ORDERED: POTA-23 PO (10:41)
[2018-12-06] MEDS ORDERED: ASPI81TA94 PO (10:41)
[2018-12-06] MEDS ORDERED: AZEL137S NS (10:48)
[2018-12-06] MEDS ORDERED: MONT10TA PO (10:48)
[2018-12-06] MEDS ORDERED: MIRA50TA PO (10:48)
[2018-12-06] MEDS ORDERED: OMEG-96 PO (10:48)
[2018-12-06] MEDS ORDERED: LINA72CA (10:48)
[2018-12-06] MEDS ORDERED: CALC-137 (10:48)
[2018-12-06] MEDS ORDERED: VENL75TA12 PO (10:48)
== END 2018-12-01 21:11 | disposition home or self-care (01) ==
LOC: ER 17:41
DX: J35.1 Hypertrophy of tonsils (principal); D68.9 Coagulation defect, unspecified; Z79.82 Long term (current) use of aspirin; I10 Essential (primary) hypertension; E78.5 Hyperlipidemia, unspecified
CPT/HCPCS: 70491; 71046; 71275; 81001; 83880; 84484; 85025; 85379; 87088; 93005; 96360; 96361; 99284; J7030; J7050; J7512; Q9967; 82040; 82247; 82310; 82374; 82435; 82565; 82947; 84075; 84132; 84155; 84295; 84450; 84460; 84520

== ENCOUNTER → 2018-12-13 | Outpatient (CLI) | payer OTHER ==
[~2018-12-13] MED LIST changes: +AMOX-559 PO; +AZEL137S NS; +CALC-137; +LINA72CA; +MIRA50TA PO; +MONT10TA PO; +OMEG-96 PO; +POTA-23 PO; +PRED20TA6 PO; -ROS10 PO; +ROSU10TA PO; +VENL75TA12 PO
== END ==
LOC: LAB 16:21
PROVIDERS: ATTEND Otolaryngology
DX: J30.9 Allergic rhinitis, unspecified (principal)
CPT/HCPCS: 86003; 87071; 87252

== ENCOUNTER → 2019-01-03 | Outpatient (CLI) | payer OTHER ==
[~2019-01-03] MED LIST changes: +PARO-46 PO
[2019-01-03 15:39] LABS: INR 0.91
== END ==
LOC: LAB 15:12
PROVIDERS: ATTEND Otolaryngology
DX: Z01.818 Encounter for other preprocedural examination (principal)
CPT/HCPCS: 36415; 85610; 85730

== ENCOUNTER → 2019-02-02 | Outpatient (CLI) | payer OTHER ==
--- NOTE | 2019-02-03 15:48 | RADIOLOGY IMAGING REPORT ---
FACILITY: [facility] - [place] PATIENT NAME: ADRIA ARMSTRONG : [id number] MR: [id number] V: [id number] EXAM DATE: [id number] ORDERING PHYSICIAN: STUART XIAO TECHNOLOGIST: Bhaskar Owusu RDMS, RD PROCEDURE:US LEFT BREAST COMPARISON:Prior Left breast Ultrasound of 07/13/18, 02/02/18, 07/12/17 INDICATIONS:6 MO F/U FINDINGS: There are 4 circumscribed anechoic masses just beneath the skin in the 9 & 10 o'clock positions of the Left breast. These do exhibit sharp echogenic coleman with acoustic shadowing. These appear to correspond to multiple round thinly calcified nodules in the medial portion Left breast on recent mammogram. DIAGNOSTIC CATEGORY 3--PROBABLY BENIGN FINDING. RECOMMENDATIONS: SIX MONTH FOLLOW-UP SCREENING MAMMOGRAM: BILATERAL BREASTS. IMPRESSION: 1. BIRADS 3: Probably benign finding. The multiple anechoic nodules in the 9 & 10 o'clock position Left breast have remained stable. Of note the patient will be due for her annual bilateral screening mammograms in 6 months. Dictated by: Melvi Bender M.D. on 02/03/2019 at 8:41 Transcribed by: JUDY on 02/03/2019 at 14:51 Approved by: Melvi Bender M.D. on 02/03/2019 at 15:47 [facility]
== END ==
LOC: MAMO 01-25 00:27
PROVIDERS: ATTEND Nurse Practitioner Family
DX: R92.1 Mammographic calcification found on diagnostic imaging of breast (principal)

== ENCOUNTER → 2019-02-24 | Outpatient (CLI) | payer OTHER ==
--- NOTE | 2019-02-24 18:12 | RADIOLOGY IMAGING REPORT ---
FACILITY: [facility] [place] PATIENT NAME: Jenny Wilson : 1955 MR: [id number] V: [id number] EXAM DATE: ORDERING PHYSICIAN: STUART XIAO TECHNOLOGIST: Location: [facility] [place] Patient: Jenny Wilson : 1955 Visit/Account:[id number] Date of Sevice: 02/24/2019 KNEE 3 VIEW RIGHT History: Right knee pain. Status post joint replacement. History of prior avulsion fracture from the superior aspect of the patella. Comparison study: October 23, 2016. Findings: Again noted are findings of osteopenia and a right total knee prosthesis. In this patient who has a history of avulsion from the superior aspect of the patella similar finding s are noted, but there is now increased displacement of the fracture fragments. The avulsed suprapate llar fracture fragment is pulled back superiorly and the patella has migrated inferiorly and may inte rfere joint function. IMPRESSION: 1. Status post remote right total knee replacement. 2. No avulsion fracture at the site of attachment of the suprapatellar tendon upon the patella. Ravinder rison the previous study shows that the avulsed fracture fragment has been pulled more superior and t he patella now lies more inferior. The new inferior position of the patella is in between the femur a nd tibia where it could interfere with joint function. Correlation clinical exam is recommended. Results were called to STUART XIAO M.D. At 02/24/2019 6:05 PM. Report Dictated By: Prosper Hansen MD at 02/24/2019 6:01 PM Report E-Signed By: Prosper Hansen MD at 02/24/2019 6:09 PM WSN:[id number]
== END ==
LOC: RAD 16:30
PROVIDERS: ATTEND Nurse Practitioner Family
DX: M25.461 Effusion, right knee (principal); Z96.651 Presence of right artificial knee joint

== ENCOUNTER → 2019-03-13 | Outpatient (CLI) | payer OTHER ==
--- NOTE | 2019-03-13 17:31 | RADIOLOGY IMAGING REPORT ---
FACILITY: [facility] PATIENT NAME: Jenny Wilson : 1955 MR: [id number] V: [id number] EXAM DATE: ORDERING PHYSICIAN: STUART XIAO TECHNOLOGIST: Location: [facility] Patient: Jenny Wilson : 1955 Visit/Account:[id number] Date of Sevice: 03/13/2019 Exam type: ESOPH VIDEO SWALLOWING History: Compared swallowing Comparison: None. Findings: The modified barium swallow was performed by the speech pathologist. Fluoroscopic assistance was pro vided. Patient received thin barium, there is been substances and a barium tablet. Please see the [facility] pathologist report for complete details. The dose area product was 301.68 micro-Rudolph per meter squared. IMPRESSION: 1. As above Report Dictated By: Melvi Bender MD at 03/13/2019 5:26 PM Report E-Signed By: Melvi Bender MD at 03/13/2019 5:27 PM WSN:[id number]
--- NOTE | 2019-03-14 13:08 | SLP MODIFIED BARIUM SWALLOW ---
[MODIFIED BARIUM SWALLOW STUDY REPORT Ordering Physician: Arleen Jarquin Clinician: Ivelisse Cabral MS, CCC-MEASUREMENT SUPERVISOR Type of Assessment: [facility] Patient: Jenny Wilson : 1955, 63yo Evaluation Date: 03-13-19 BACKGROUND The patient is a 63 year-old female who presents for an outpatient modified barium swallow study (MBSS) due to history of dysphagia with increasing severity of symptoms including globus sensation, poor initiation and occasional coughing/choking primarily with liquids. The patient has a PMHx significant for GERD, lingual tonsils reduction, consistent sinus drainage with a hx of sinus infections. Following reduction of lingual tonsils, the patient reports improved breathing but dysphagia persists. Pt does report polypharmacy. She did not bring in a current medications list. Last meds reconciliation was 12/06/18 per medical record. None of the patients medications reconciled on 12/06/18 report pharyngeal dysphagia as a primary side effect. Several are reported to have side effects of xerostomia, however, the patient does not report xerostomia. She has no recent hx of pneumonia. MODIFIED BARIUM SWALLOW ASSESSMENT Diagnosis: dysphagia Past Medical Hx: GERD, reduction of laryngeal tonsils, sinus draining/infections Pain with Swallow: Denies LOC / Participation: Alert and cooperative. Follows instructions: Yes Orientation: A&O x4 Sialorrhea: No Xerostomia: No Oral Hygiene: appropriate/adequate Supplemental Oxygen Use: No COPD Dx: No Overall Impression: Normal swallow mechanism. No dysphagia witnessed. No laryngeal penetration or aspiration witnessed. In conjunction with radiology, the pt was seated in the lateral view. The following consistencies were trialed: thin liquids via cup sip, pureed solids, mechanically altered solids, advanced solids, mixed consistencies (thin liquids, mechanical soft foods), and a 1cm barium pill paired with thin liquids. Oral phase: WNL. No abnormal structure of function witnessed. Pharyngeal phase: WNL. No abnormal structure of function witnessed. Esophageal phase: WNL. No abnormal structure of function witnessed. Pt reports intermittent symptoms of esophageal dysphagia including waking with heartburn. Penetration/Aspiration Scale (PAS)*: All trialed consistencies: Score of 1; Material does not enter airway *(Lorenzak et al. 1996) SUMMARY and RECOMMENDATIONS Normal swallow mechanism. No oral/pharyngeal/esophageal dysphagia witnessed. No laryngeal penetration/aspiration witnessed. Aspiration Risk: Low; no abnormal structure/function witnessed. Dysphagia Outcome Severity Scale: 0; Normal swallowing mechanism. RECOMMENDATIONS Speech Therapy Need : Not at this time Further Assessment: Esophagram may be appropriate d/t symptoms consistent with esophageal dysphagia Thank you for this referral. Please call [phone] to contact speech therapy at [facility] Ivelisse Cabral M.S., [facility]-MEASUREMENT SUPERVISOR Speech Therapist KYLE
== END ==
LOC: RAD 00:32
PROVIDERS: ATTEND Nurse Practitioner Family
DX: R05 Cough (principal); R13.10 Dysphagia, unspecified
CPT/HCPCS: 74230